=== PATIENT | male | born 1945 | race American Indian/Alaskan Native ===

== ENCOUNTER 2019-11-23 12:33 | Inpatient (IN) | payer MEDICARE, OTHER ==
--- NOTE | 2019-11-23 12:50 | Event Note ---
ED Screening Note Date of service: 11/23/19 Time: 12:48 ED Screening Note: Pt complains of right chest discomfort, fever, and urinary urgency x yesterday +dysuria denies cough or SOB This initial assessment/diagnostic orders/clinical plan/treatment(s) is/are subject to change based on patients health status, clinical progression and re- assessment by fellow clinical providers in the ED. Further treatment and workup at subsequent clinical providers discretion. Patient/guardian urged not to elope from the ED as their condition may be serious if not clinically assessed and managed. Initial orders include: CXR labs EKG
--- NOTE | 2019-11-23 13:34 | XRay Report ---
CHEST 2 VIEWS INDICATION: MAIN: chest pain PT SD COUGH AND CHILLS. ALONGSIDE PAIN UPON URINATION ...JTS. COMPARISON: 02/17/2009. FINDINGS: Support devices: None. Heart: Within normal limits. Lungs/Pleura: No acute air space or interstitial disease. No significant pleural effusion. IMPRESSION: No acute findings. Signer Name: Mendoza Aparicio MD Signed: 11/23/2019 1:30 PM Workstation Name: [id number]
[2019-11-23 14:43] LABS: Basophils % (Auto) 0.2 % (0.0-1.8); Eosinophils % (Auto) 0.3 % (0.0-4.3); Hematocrit 47.6 % (35.5-45.6); Hemoglobin 15.8 gm/dl (11.8-15.2); Lymphocytes # (Auto) 1.9 K/mm3 (1.2-5.4); Lymphocytes % (Auto) 13.5 % (13.4-35.0); Mean Corpuscular HGB Conc 33 % (32-34); Mean Corpuscular Volume 95 fl (84-94); Monocytes # (Auto) 0.9 K/mm3 (0.0-0.8); Monocytes % (Auto) 6.1 % (0.0-7.3); Platelet Count 202 K/mm3 (140-440); Red Blood Count 5.02 M/mm3 (3.65-5.03); Red Cell Distribution Width 14.2 % (13.2-15.2)
[2019-11-23 14:59] LABS: Alanine Aminotransferase 9 units/L (7-56); Albumin 3.9 g/dL (3.9-5); BUN/Creatinine Ratio 9; Blood Urea Nitrogen 8 mg/dL (9-20); Calcium 9.8 mg/dL (8.4-10.2); Hemolysis Index 22
[2019-11-23 17:13] LABS: Bilirubin,Urine NEG (Negative); Blood,Urine LG (Negative); Color,Urine Yellow (Yellow); Mucus,Urine FEW /HPF; Urobilinogen,Urine < 2.0 mg/dL (<2.0)
[2019-11-23 17:14] LABS: RBC,Urine > 182.0 /HPF (0.0-6.0); WBC,Urine > 182.0 /HPF (0.0-6.0)
[2019-11-23] MEDS ORDERED: HYDROcodone/ACETAMINOPHEN 10-325MG TAB PO ONE (18:16)
[2019-11-23] MEDS ORDERED: ONDANSETRON 4 MG ODT TAB PO ONE (18:17)
[2019-11-23] MEDS ORDERED: HYDROcodone/ACETAMINOPHEN 10-325MG TAB ONE (18:20)
[2019-11-23] MEDS ORDERED: CEFEPIME/NS 2 GM/100 ML 2 GM/100 ML BAG IV SCH (18:36)
[2019-11-23] MEDS ORDERED: SODIUM CHLORIDE 0.9% 1000 ML IV SOLN IV ONE (18:36)
[2019-11-23] MEDS ORDERED: ONDANSETRON 4 MG/2 ML INJ IV ONE (18:39)
[2019-11-23] MEDS ORDERED: ACETAMINOPHEN 325 MG TAB PO ONE (18:39)
--- NOTE | 2019-11-23 19:41 | Emergency Department Report ---
ED General Adult HPI - General Chief complaint: Fever Stated complaint: FEVER Time Seen by Provider: 11/23/19 12:47 Source: patient Mode of arrival: Ambulatory Limitations: No Limitations - History of Present Illness Initial comments: Patient is a 74-year-old male with past history of hypertension and probable BPH who is presenting with fever for the last 2 days. Patient lives in [place] but him and his had driven to [place] for the holidays. There are no way back to [place] that the patient was feeling ill and didn't feel as though he continued on the Hans. Patient's has mild nausea suprapubic pain and dysuria and malaise. Patient denies cough congestion. Patient has had subjective fevers and chills. Severity scale (0 -10): 0 - Related Data Allergies Allergy/AdvReac Type Severity Reaction Status Date / Time No Known Allergies Allergy Unverified 11/23/19 12:41 ED Review of Systems ROS: Stated complaint: FEVER Other details as noted in HPI Comment: All other systems reviewed and negative ED Past Medical Hx - Past Medical History Previous Medical History?: Yes Hx Hypertension: Yes Additional medical history: Right inquinal hernia, Dysuria with frequent urination - Surgical History Past Surgical History?: Yes Additional Surgical History: Right inquinal hernia repair - Social History Smoking Status: Current Every Day Smoker Substance Use Type: Alcohol ED Physical Exam - General Limitations: No Limitations General appearance: alert, in no apparent distress - Head Head exam: Present: atraumatic, normocephalic - Eye Eye exam: Present: normal appearance. Absent: PERRL, EOMI - ENT ENT exam: Present: normal orophraynx, mucous membranes moist - Neck Neck exam: Present: normal inspection - Respiratory Respiratory exam: Present: normal lung sounds bilaterally. Absent: respiratory distress, wheezes, rales, rhonchi, stridor - Cardiovascular Cardiovascular Exam: Present: normal rhythm, tachycardia. Absent: systolic murmur, diastolic murmur, rubs, gallop - GI/Abdominal GI/Abdominal exam: Present: soft, tenderness (suprapubic), normal bowel sounds. Absent: distended, guarding, rebound - Rectal Rectal exam: Present: deferred - Extremities Exam Extremities exam: Present: normal inspection - Back Exam Back exam: Present: normal inspection - Neurological Exam Neurological exam: Present: alert, oriented X3 - Psychiatric Psychiatric exam: Present: normal affect, normal mood - Skin Skin exam: Present: warm, dry, intact, normal color. Absent: rash ED Course Vital Signs 11/23/19 11/23/19 11/23/19 12:44 18:02 18:26 Temperature 98.8 F 100.5 F H Pulse Rate 110 H 94 H Respiratory 20 20 20 Rate Blood Pressure 186/89 Blood Pressure 156/80 [Right] O2 Sat by Pulse 96 94 Oximetry 11/23/19 19:12 Temperature Pulse Rate Respiratory 16 Rate Blood Pressure Blood Pressure [Right] O2 Sat by Pulse Oximetry ED Medical Decision Making - Lab Data Result diagrams: 11/23/19 14:22 11/23/19 14:22 Lab Results 11/23/19 11/23/19 11/23/19 Range/Units 14:22 14:22 16:22 WBC 14.0 H (4.5-11.0) K/mm3 RBC 5.02 (3.65-5.03) M/mm3 Hgb 15.8 H (11.8-15.2) gm/dl Hct 47.6 H (35.5-45.6) % MCV 95 H (84-94) fl MCH 31 (28-32) pg MCHC 33 (32-34) % RDW 14.2 (13.2-15.2) % Plt Count 202 (140-440) K/mm3 Lymph % (Auto) 13.5 (13.4-35.0) % [place] % (Auto) 6.1 (0.0-7.3) % Eos % (Auto) 0.3 (0.0-4.3) % Baso % (Auto) 0.2 (0.0-1.8) % Lymph # 1.9 (1.2-5.4) K/mm3 [place] # 0.9 H (0.0-0.8) K/mm3 Eos # 0.0 (0.0-0.4) K/mm3 Baso # 0.0 (0.0-0.1) K/mm3 Seg Neutrophils % 79.9 H (40.0-70.0) % Seg Neutrophils # 11.2 H (1.8-7.7) K/mm3 Sodium 131 L (137-145) mmol/L Potassium 4.0 (3.6-5.0) mmol/L Chloride 97.9 L (98-107) mmol/L Carbon Dioxide 22 (22-30) mmol/L Anion Gap 15 mmol/L BUN 8 L (9-20) mg/dL Creatinine 0.9 (0.8-1.5) mg/dL Estimated GFR > 60 ml/min BUN/Creatinine Ratio 9 % Glucose 114 H (75-100) mg/dL Lactic Acid (0.7-2.0) mmol/L Calcium 9.8 (8.4-10.2) mg/dL Total Bilirubin 0.60 (0.1-1.2) mg/dL AST 15 (5-40) units/L ALT 9 (7-56) units/L Alkaline Phosphatase 71 (35-129) units/L Troponin T < 0.010 < 0.010 (0.00-0.029) ng/mL Total Protein 7.1 (6.3-8.2) g/dL Albumin 3.9 (3.9-5) g/dL Albumin/Globulin Ratio 1.2 % Urine Color (Yellow) Urine Turbidity (Clear) Urine pH (5.0-7.0) Ur Specific [place] (1.003-1.030) Urine Protein (Negative) mg/dL Urine Glucose (UA) (Negative) mg/dL Urine Ketones (Negative) mg/dL Urine Blood (Negative) Urine Nitrite (Negative) Urine Bilirubin (Negative) Urine Urobilinogen (<2.0) mg/dL Ur Leukocyte Esterase (Negative) Urine WBC (Auto) (0.0-6.0) /HPF Urine RBC (Auto) (0.0-6.0) /HPF Urine WBC Clumps /HPF Urine Mucus /HPF 11/23/19 11/23/19 Range/Units 18:21 Unknown WBC (4.5-11.0) K/mm3 RBC (3.65-5.03) M/mm3 Hgb (11.8-15.2) gm/dl Hct (35.5-45.6) % MCV (84-94) fl MCH (28-32) pg MCHC (32-34) % RDW (13.2-15.2) % Plt Count (140-440) K/mm3 Lymph % (Auto) (13.4-35.0) % [place] % (Auto) (0.0-7.3) % Eos % (Auto) (0.0-4.3) % Baso % (Auto) (0.0-1.8) % Lymph # (1.2-5.4) K/mm3 [place] # (0.0-0.8) K/mm3 Eos # (0.0-0.4) K/mm3 Baso # (0.0-0.1) K/mm3 Seg Neutrophils % (40.0-70.0) % Seg Neutrophils # (1.8-7.7) K/mm3 Sodium (137-145) mmol/L Potassium (3.6-5.0) mmol/L Chloride (98-107) mmol/L Carbon Dioxide (22-30) mmol/L Anion Gap mmol/L BUN (9-20) mg/dL Creatinine (0.8-1.5) mg/dL Estimated GFR ml/min BUN/Creatinine Ratio % Glucose (75-100) mg/dL Lactic Acid 1.60 (0.7-2.0) mmol/L Calcium (8.4-10.2) mg/dL Total Bilirubin (0.1-1.2) mg/dL AST (5-40) units/L ALT (7-56) units/L Alkaline Phosphatase (35-129) units/L Troponin T (0.00-0.029) ng/mL Total Protein (6.3-8.2) g/dL Albumin (3.9-5) g/dL Albumin/Globulin Ratio % Urine Color Yellow (Yellow) Urine Turbidity Cloudy (Clear) Urine pH 5.0 (5.0-7.0) Ur Specific [place] 1.019 (1.003-1.030) Urine Protein 30 mg/dl (Negative) mg/dL Urine Glucose (UA) Neg (Negative) mg/dL Urine Ketones Neg (Negative) mg/dL Urine Blood Lg (Negative) Urine Nitrite Pos (Negative) Urine Bilirubin Neg (Negative) Urine Urobilinogen < 2.0 (<2.0) mg/dL Ur Leukocyte Esterase Lg (Negative) Urine WBC (Auto) > 182.0 H (0.0-6.0) /HPF Urine RBC (Auto) > 182.0 (0.0-6.0) /HPF Urine WBC Clumps 1+ /HPF Urine Mucus Few /HPF - Medical Decision Making Patient is a 74-year-old male who is presenting with suprapubic discomfort fever and dysuria. Patient has a compensated urinary tract infection. White count is elevated. Patient will be started on cefepime admitted to the hospital observation status. Lactic acid is been ordered. Fluids been initiated the patient's mild tachycardia and hyponatremia. Critical Care Time: Yes (30) Critical care attestation.: If time is entered above; I have spent that time in minutes in the direct care of this critically ill patient, excluding procedure time. ED Disposition Clinical Impression: Complicated UTI (urinary tract infection), Sepsis, Hyponatremia, Mild dehydration Disposition: DC-09 OP ADMIT IP TO THIS HOSP Is pt being admited?: Yes Does the pt Need Aspirin: No Condition: Stable Time of Disposition: 19:41
[2019-11-23] MEDS ORDERED: ONDANSETRON 4 MG/2 ML INJ IV PRN (22:33)
--- NOTE | 2019-11-23 22:38 | History and Physical Report ---
History of Present Illness Date of admission: 11/23/19 19:42 Chief complaint: Dysuria and pelvic pain History of present illness: 74-year-old man with a history of BPH. He presents to the hospital complaining of dysuria, poor stream of urination. Fever, feeling ill. He also noted that he had a small amounts of blood at the end of urination. Him and his were driving back from [place] to [place] on a road trip when he became very ill and he had to stop in the hospital. The pain in his lower abdomen/pelvis became so severe that he thought perhaps that hernia was bursting his stomach as he had hernias in the past. The pain has now resolved. Past medical history; BPH, off medications that he is waiting for a reevaluation at the [facility]. Hypertension, prediabetes Past surgical history, hernia repair x2 Social history, smoker, last cigarette was 2 days ago, denies alcohol or illicit drug use. He is retired and lives with his he is a . Family history denies any family history of prostate cancer or prostate issues and other family members. Medications and Allergies Allergies Allergy/AdvReac Type Severity Reaction Status Date / Time No Known Allergies Allergy Unverified 11/23/19 12:41 Home Medications Medication Instructions Recorded Confirmed Last Taken Type amLODIPine [Norvasc] 10 mg PO DAILY 11/23/19 11/23/19 Unknown History Active Meds: Active Medications Acetaminophen (Tylenol) 650 mg PO Q4H PRN PRN Reason: Pain MILD(1-3)/Fever >100.5/MEJIA Amlodipine Besylate (Amlodipine) 10 mg PO DAILY [facility] Enoxaparin Sodium (Enoxaparin) 40 mg SUB-Q QDAY@2200 [facility] Cefepime HCl (Cefepime/Ns 2 Gm/100 Ml) 2 gm in 100 mls @ 200 mls/hr IV Q12HR DONN; Protocol Last Admin: 11/23/19 19:12 Dose: 200 mls/hr Documented by: Ceftriaxone Sodium (Rocephin/Ns 1 Gm/50 Ml) 1 gm in 50 mls @ 100 mls/hr IV Q24HR DONN; Protocol Sodium Chloride (Nacl 0.9% 1000 Ml) 1,000 mls @ 100 mls/hr IV DIRECT DONN Ondansetron HCl (Zofran) 4 mg IV Q8H PRN PRN Reason: Nausea And Vomiting Sodium Chloride (Sodium Chloride Flush Syringe 10 Ml) 10 ml IV BID DONN Sodium Chloride (Sodium Chloride Flush Syringe 10 Ml) 10 ml IV PRN PRN PRN Reason: LINE FLUSH Tamsulosin HCl (Flomax) 0.4 mg PO QDAY DONN Review of Systems All systems: negative (See HPI) Exam - Constitutional Vitals: Temp Pulse Resp BP Pulse Ox 99.8 F H 85 16 117/65 93 11/23/19 19:10 11/23/19 19:10 11/23/19 19:26 11/23/19 19:10 11/23/19 19:10 General appearance: Present: no acute distress, well-nourished - EENT Eyes: Present: PERRL ENT: hearing intact, clear oral mucosa - Neck Neck: Present: supple, normal ROM - Respiratory Respiratory effort: normal Respiratory: bilateral: CTA - Cardiovascular Heart Sounds: Present: S1 & S2. Absent: rub, click - Extremities Extremities: pulses symmetrical, No edema Peripheral Pulses: within normal limits - Abdominal General gastrointestinal: Present: soft, non-tender, non-distended, normal bowel sounds Male genitourinary: Present: normal - Integumentary Integumentary: Present: clear, warm, dry - Musculoskeletal Musculoskeletal: gait normal, strength equal bilaterally - Psychiatric Psychiatric: appropriate mood/affect, intact judgment & insight - Neurologic Neurologic: CNII-XII intact, moves all extremities Results - Labs CBC & Chem 7: 11/23/19 14:22 11/23/19 14:22 Labs: Laboratory Last Values WBC 14.0 K/mm3 (4.5-11.0) H 11/23/19 14:22 RBC 5.02 M/mm3 (3.65-5.03) 11/23/19 14:22 Hgb 15.8 gm/dl (11.8-15.2) H 11/23/19 14:22 Hct 47.6 % (35.5-45.6) H 11/23/19 14:22 MCV 95 fl (84-94) H 11/23/19 14:22 MCH 31 pg (28-32) 11/23/19 14:22 MCHC 33 % (32-34) 11/23/19 14:22 RDW 14.2 % (13.2-15.2) 11/23/19 14:22 Plt Count 202 K/mm3 (140-440) 11/23/19 14:22 Lymph % (Auto) 13.5 % (13.4-35.0) 11/23/19 14:22 [place] % (Auto) 6.1 % (0.0-7.3) 11/23/19 14:22 Eos % (Auto) 0.3 % (0.0-4.3) 11/23/19 14:22 Baso % (Auto) 0.2 % (0.0-1.8) 11/23/19 14:22 Lymph # 1.9 K/mm3 (1.2-5.4) 11/23/19 14:22 [place] # 0.9 K/mm3 (0.0-0.8) H 11/23/19 14:22 Eos # 0.0 K/mm3 (0.0-0.4) 11/23/19 14:22 Baso # 0.0 K/mm3 (0.0-0.1) 11/23/19 14:22 Seg Neutrophils % 79.9 % (40.0-70.0) H 11/23/19 14:22 Seg Neutrophils # 11.2 K/mm3 (1.8-7.7) H 11/23/19 14:22 Sodium 131 mmol/L (137-145) L 11/23/19 14:22 Potassium 4.0 mmol/L (3.6-5.0) 11/23/19 14:22 Chloride 97.9 mmol/L (98-107) L 11/23/19 14:22 Carbon Dioxide 22 mmol/L (22-30) 11/23/19 14:22 Anion Gap 15 mmol/L 11/23/19 14:22 BUN 8 mg/dL (9-20) L 11/23/19 14:22 Creatinine 0.9 mg/dL (0.8-1.5) 11/23/19 14:22 Estimated GFR > 60 ml/min 11/23/19 14:22 BUN/Creatinine Ratio 9 % 11/23/19 14:22 Glucose 114 mg/dL (75-100) H 11/23/19 14:22 Lactic Acid 1.60 mmol/L (0.7-2.0) 11/23/19 18:21 Calcium 9.8 mg/dL (8.4-10.2) 11/23/19 14:22 Total Bilirubin 0.60 mg/dL (0.1-1.2) 11/23/19 14:22 AST 15 units/L (5-40) 11/23/19 14:22 ALT 9 units/L (7-56) 11/23/19 14:22 Alkaline Phosphatase 71 units/L (35-129) 11/23/19 14:22 Troponin T < 0.010 ng/mL (0.00-0.029) 11/23/19 16:22 Total Protein 7.1 g/dL (6.3-8.2) 11/23/19 14:22 Albumin 3.9 g/dL (3.9-5) 11/23/19 14:22 Albumin/Globulin Ratio 1.2 % 11/23/19 14:22 Urine Color Yellow (Yellow) 11/23/19 Unknown Urine Turbidity Cloudy (Clear) 11/23/19 Unknown Urine pH 5.0 (5.0-7.0) 11/23/19 Unknown Ur Specific [place] 1.019 (1.003-1.030) 11/23/19 Unknown Urine Protein 30 mg/dl mg/dL (Negative) 11/23/19 Unknown Urine Glucose (UA) Neg mg/dL (Negative) 11/23/19 Unknown Urine Ketones Neg mg/dL (Negative) 11/23/19 Unknown Urine Blood Lg (Negative) 11/23/19 Unknown Urine Nitrite Pos (Negative) 11/23/19 Unknown Urine Bilirubin Neg (Negative) 11/23/19 Unknown Urine Urobilinogen < 2.0 mg/dL (<2.0) 11/23/19 Unknown Ur Leukocyte Esterase Lg (Negative) 11/23/19 Unknown Urine WBC (Auto) > 182.0 /HPF (0.0-6.0) H 11/23/19 Unknown Urine RBC (Auto) > 182.0 /HPF (0.0-6.0) 11/23/19 Unknown Urine WBC Clumps 1+ /HPF 11/23/19 Unknown Urine Mucus Few /HPF 11/23/19 Unknown - Imaging and Cardiology Chest x-ray: image reviewed (No acute findings) Assessment and Plan Assessment and plan: 74-year-old man who presents with sepsis UTI and poor urinary stream. UTI/sepsis Was most likely caused by obstructive uropathy from his prostate issues Obtain urine cultures, antibiotics, IV fluids BPH with poor urinary stream Started on Flomax, he will need a prescription at the time of discharge Tobacco abuse/dependence Smoking cessation counseling performed for 10 minutes, nicotine patches when necessary Hyponatremia, IV fluids DVT prophylaxis with Lovenox Preventative health counseling performed for 17 minutes
[2019-11-23] MEDS: SODIUM CHLORIDE 0.9% 1000 ML 1,000 ML IV SCH (23:34)
[2019-11-24] MEDS: ACETAMINOPHEN 325 MG TAB PO PRN ×2 (01:35→23:42)
[2019-11-24 04:56] LABS: Basophils % (Auto) 0.3 % (0.0-1.8); Eosinophils % (Auto) 0.2 % (0.0-4.3); Hematocrit 45.7 % (35.5-45.6); Lymphocytes # (Auto) 2.5 K/mm3 (1.2-5.4); Mean Corpuscular HGB Conc 33 % (32-34); Mean Corpuscular Volume 96 fl (84-94); Monocytes # (Auto) 0.9 K/mm3 (0.0-0.8); Monocytes % (Auto) 6.8 % (0.0-7.3); Platelet Count 180 K/mm3 (140-440); Red Blood Count 4.78 M/mm3 (3.65-5.03); Red Cell Distribution Width 14.1 % (13.2-15.2)
[2019-11-24 05:15] LABS: BUN/Creatinine Ratio 10; Blood Urea Nitrogen 9 mg/dL (9-20); Calcium 8.8 mg/dL (8.4-10.2); Hemolysis Index 8
--- NOTE | 2019-11-24 07:57 | Progress Note ---
Assessment and Plan Assessment and plan: 74-year-old man with a history of BPH, Hernia Repair He presents to the hospital complaining of dysuria, poor stream of urination. Fever, feeling ill. He also noted that he had a small amounts of blood at the end of urination. Him and his were [place] trip when he became very ill and he had to stop in the hospital. The pain in his lower abdomen/pelvis became so severe that he thought perhaps that hernia was bursting his stomach as he had hernias in the past. The pain has now resolved. UTI/sepsis possible Underlying Prostatitis Was most likely caused by obstructive uropathy from his prostate issues Obtain urine cultures, antibiotics, IV fluids Will check Renal ultrasound. BPH with poor urinary stream Started on Flomax, he will need a prescription at the time of discharge Following up at the [facility] Tobacco abuse/dependence Smoking cessation counseling performed for 15 minutes reinforcement, nicotine patches when necessary Hyponatremia, IV fluids Hypoglycemia- Monitor closely, DVT prophylaxis with Lovenox Preventative health counseling performed for 17 minutes Will change patient to inpatient due to continued persistent Fever. History Interval history: Patient seen and examined today resting comfortably reports to me that he has been treated in the past for prostatitis. He has been having dribbling of urine. With overflow incontinence occasionally. Hospitalist Physical - Physical exam Narrative exam: VITAL SIGNS: Reviewed. GENERAL: The patient appears normally developed, family at bedside. Vital signs as documented. HEAD: No signs of head trauma. EYES: Pupils are equal. Extraocular motions intact. EARS: Hearing grossly intact. MOUTH: Oropharynx is normal. NECK: No adenopathy, no JVD. CHEST: Chest with clear breath sounds bilaterally. No wheezes, rales, or rhonchi. CARDIAC: Regular rate and rhythm. S1 and S2, without murmurs, gallops, or rubs. VASCULAR: No Edema. Peripheral pulses normal and equal in all extremities. ABDOMEN: Soft, non tender and non distended. No rebound or guarding, and no masses palpated. Bowel Sounds normal. MUSCULOSKELETAL: Good range of motion of all major joints. Extremities without clubbing, cyanosis or edema. NEUROLOGIC EXAM: Alert and oriented x 3 No focal sensory or strength deficits. Speech normal. Follows commands. PSYCHIATRIC: Mood normal. SKIN: detial exam as documented in skin assessment - Constitutional Vitals: Temp Pulse Resp BP Pulse Ox 99.9 F H 88 20 108/48 90 11/24/19 04:22 11/24/19 01:46 11/24/19 01:46 11/24/19 01:46 11/24/19 01:46 General appearance: Present: no acute distress, well-nourished Results - Labs CBC & Chem 7: 11/24/19 04:03 11/24/19 04:03 Labs: Laboratory Last Values WBC 13.9 K/mm3 (4.5-11.0) H 11/24/19 04:03 RBC 4.78 M/mm3 (3.65-5.03) 11/24/19 04:03 Hgb 15.0 gm/dl (11.8-15.2) 11/24/19 04:03 Hct 45.7 % (35.5-45.6) H 11/24/19 04:03 MCV 96 fl (84-94) H 11/24/19 04:03 MCH 32 pg (28-32) 11/24/19 04:03 MCHC 33 % (32-34) 11/24/19 04:03 RDW 14.1 % (13.2-15.2) 11/24/19 04:03 Plt Count 180 K/mm3 (140-440) 11/24/19 04:03 Lymph % (Auto) 18.0 % (13.4-35.0) 11/24/19 04:03 [place] % (Auto) 6.8 % (0.0-7.3) 11/24/19 04:03 Eos % (Auto) 0.2 % (0.0-4.3) 11/24/19 04:03 Baso % (Auto) 0.3 % (0.0-1.8) 11/24/19 04:03 Lymph # 2.5 K/mm3 (1.2-5.4) 11/24/19 04:03 [place] # 0.9 K/mm3 (0.0-0.8) H 11/24/19 04:03 Eos # 0.0 K/mm3 (0.0-0.4) 11/24/19 04:03 Baso # 0.0 K/mm3 (0.0-0.1) 11/24/19 04:03 Seg Neutrophils % 74.7 % (40.0-70.0) H 11/24/19 04:03 Seg Neutrophils # 10.4 K/mm3 (1.8-7.7) H 11/24/19 04:03 Sodium 134 mmol/L (137-145) L 11/24/19 04:03 Potassium 3.9 mmol/L (3.6-5.0) 11/24/19 04:03 Chloride 98.4 mmol/L (98-107) 11/24/19 04:03 Carbon Dioxide 20 mmol/L (22-30) L 11/24/19 04:03 Anion Gap 20 mmol/L 11/24/19 04:03 BUN 9 mg/dL (9-20) 11/24/19 04:03 Creatinine 0.9 mg/dL (0.8-1.5) 11/24/19 04:03 Estimated GFR > 60 ml/min 11/24/19 04:03 BUN/Creatinine Ratio 10 % 11/24/19 04:03 Glucose 63 mg/dL (75-100) L 11/24/19 04:03 Lactic Acid 1.20 mmol/L (0.7-2.0) 11/23/19 23:42 Calcium 8.8 mg/dL (8.4-10.2) 11/24/19 04:03 Total Bilirubin 0.60 mg/dL (0.1-1.2) 11/23/19 14:22 AST 15 units/L (5-40) 11/23/19 14:22 ALT 9 units/L (7-56) 11/23/19 14:22 Alkaline Phosphatase 71 units/L (35-129) 11/23/19 14:22 Troponin T < 0.010 ng/mL (0.00-0.029) 11/23/19 16:22 Total Protein 7.1 g/dL (6.3-8.2) 11/23/19 14:22 Albumin 3.9 g/dL (3.9-5) 11/23/19 14:22 Albumin/Globulin Ratio 1.2 % 11/23/19 14:22 Urine Color Yellow (Yellow) 11/23/19 Unknown Urine Turbidity Cloudy (Clear) 11/23/19 Unknown Urine pH 5.0 (5.0-7.0) 11/23/19 Unknown Ur Specific [place] 1.019 (1.003-1.030) 11/23/19 Unknown Urine Protein 30 mg/dl mg/dL (Negative) 11/23/19 Unknown Urine Glucose (UA) Neg mg/dL (Negative) 11/23/19 Unknown Urine Ketones Neg mg/dL (Negative) 11/23/19 Unknown Urine Blood Lg (Negative) 11/23/19 Unknown Urine Nitrite Pos (Negative) 11/23/19 Unknown Urine Bilirubin Neg (Negative) 11/23/19 Unknown Urine Urobilinogen < 2.0 mg/dL (<2.0) 11/23/19 Unknown Ur Leukocyte Esterase Lg (Negative) 11/23/19 Unknown Urine WBC (Auto) > 182.0 /HPF (0.0-6.0) H 11/23/19 Unknown Urine RBC (Auto) > 182.0 /HPF (0.0-6.0) 11/23/19 Unknown Urine WBC Clumps 1+ /HPF 11/23/19 Unknown Urine Mucus Few /HPF 11/23/19 Unknown Active Medications - Current Medications Current Medications: Generic Name Dose Route Start Last Admin Trade Name Freq PRN Reason Stop Dose Admin Acetaminophen 650 mg 11/23/19 22:33 11/24/19 01:35 Tylenol PO 650 mg Q4H PRN Administration Pain MILD(1-3)/Fever >100.5/MEJIA Amlodipine Besylate 10 mg 11/24/19 10:00 Amlodipine PO DAILY [facility] Enoxaparin Sodium 40 mg 11/24/19 22:00 Enoxaparin SUB-Q QDAY@2200 [facility] Ceftriaxone Sodium 1 gm in 50 mls @ 100 mls/hr 11/24/19 10:00 Rocephin/Ns 1 Gm/50 Ml IV Q24HR [facility] Protocol Sodium Chloride 1,000 mls @ 100 mls/hr 11/23/19 22:45 11/23/19 23:34 Nacl 0.9% 1000 Ml IV 100 mls/hr DIRECT DONN Administration Ondansetron HCl 4 mg 11/23/19 22:33 Zofran IV Q8H PRN Nausea And Vomiting Sodium Chloride 10 ml 11/24/19 10:00 Sodium Chloride Flush Syringe 10 Ml IV BID DONN Sodium Chloride 10 ml 11/23/19 22:33 Sodium Chloride Flush Syringe 10 Ml IV PRN PRN LINE FLUSH Tamsulosin HCl 0.4 mg 11/24/19 10:00 Flomax PO QDAY DONN
[2019-11-24] MEDS ORDERED: DEXTROSE 50% IN WATER (25GM) 50 ML SYRINGE IV PRN (08:05)
[2019-11-24 08:08] LABS: Bacteria,Urine 2+ /HPF (Negative); Bilirubin,Urine NEG (Negative); Blood,Urine MOD (Negative); Color,Urine Yellow (Yellow); Mucus,Urine FEW /HPF; Protein,Urine <15 mg/dL mg/dL (Negative); Urobilinogen,Urine < 2.0 mg/dL (<2.0)
[2019-11-24] MEDS: SODIUM CHLORIDE 0.9% 1000 ML 1,000 ML IV SCH (11:52)
[2019-11-24] MEDS: cefTRIAXone/NS 1 GM/50 ML 1 GM/50 ML BAG IV SCH (11:52)
[2019-11-24] MEDS: TAMSULOSIN 0.4 MG CAP PO SCH (11:53)
[2019-11-24] MEDS: amLODIPine 10 MG TAB PO SCH (11:55)
--- NOTE | 2019-11-24 15:58 | Ultrasound Report ---
ULTRASOUND RENAL INDICATION / CLINICAL INFORMATION: CYSTITIS. COMPARISON: None available. FINDINGS: RIGHT KIDNEY: Length = 11.3 cm. [normal > 9 cm] - Parenchymal Thickness = 0.8 cm. [normal > 1.5 cm] - Echogenicity: Increased - Hydronephrosis: None. - Cyst or mass: No significant abnormality. - Stones: None seen. LEFT KIDNEY: Length = 12.8 cm. [normal > 9 cm] - Parenchymal Thickness = 1.8 cm. [normal > 1.5 cm] - Echogenicity: Increased - Hydronephrosis: None. - Cyst or mass: No significant abnormality. - Stones: None seen. URINARY BLADDER: The bladder is poorly distended but diffuse bladder wall thickening is suspected cody suring up to 1 cm. FREE FLUID: None. ADDITIONAL FINDINGS: None. IMPRESSION: Nonspecific renal disease. Findings consistent with cystitis. Signer Name: Sarmad Ramirez Jr, MD Signed: 11/24/2019 3:53 PM Workstation Name: [id number]
[2019-11-24] MEDS ORDERED: ENOXAPARIN 40 MG/0.4 ML INJ SUB-Q SCH (22:00)
[2019-11-25 06:15] LABS: Hematocrit 41.7 % (35.5-45.6); Hemoglobin 13.9 gm/dl (11.8-15.2); Mean Corpuscular HGB Conc 33 % (32-34); Mean Corpuscular Volume 95 fl (84-94); Platelet Count 156 K/mm3 (140-440); Red Blood Count 4.41 M/mm3 (3.65-5.03); Red Cell Distribution Width 13.8 % (13.2-15.2)
[2019-11-25 06:39] LABS: BUN/Creatinine Ratio 8; Blood Urea Nitrogen 8 mg/dL (9-20); Calcium 8.5 mg/dL (8.4-10.2); Hemolysis Index 11
--- NOTE | 2019-11-25 07:48 | Discharge Summary ---
Providers - Providers Date of Admission: 11/24/19 07:57 Attending physician: PONCHO SARABIA MD 11/24/19 12:17 Physical Therapy Evaluation and Treat [CONS] Routine Comment: Reason For Exam: Weakness Primary care physician: [facility]ERSON[facility] [employer] APPRAISER Hospitalization Condition: Stable Hospital course: CYTITIS ON RENAL US Disposition: TO HOME OR SELFCARE Time spent for discharge: 35 MINS Exam - Constitutional Vitals: Temp Pulse Resp BP Pulse Ox 100.7 F H 87 17 108/47 92 11/24/19 20:08 11/24/19 20:08 11/24/19 20:08 11/24/19 20:08 11/24/19 20:08 Plan Activity: advance as tolerated, fall precautions Diet: low fat Special Instructions: record daily weights, record daily BP diary Additional Instructions: FOLLOW WITH UROLOGIST [facility] Follow up with: KENNEDI LEA MD [Primary Care Provider] - 7 Days Prescriptions: Tamsulosin [Flomax] 0.4 mg PO QDAY #30 capsule levoFLOXacin [Levaquin] 750 mg PO QDAY #7 tablet
[2019-11-25] MEDS: cefTRIAXone/NS 1 GM/50 ML 1 GM/50 ML BAG IV SCH (10:28)
[2019-11-25] MEDS: TAMSULOSIN 0.4 MG CAP PO SCH (10:29)
[2019-11-25] MEDS: amLODIPine 10 MG TAB PO SCH (10:30)
[2019-11-25 14:02] VITALS: BP 164/74
== END 2019-11-25 14:00 | disposition home or self-care (01) | DRG 872 ==
LOC: ED 12:33 → 2B-ACE 19:42 → OBSVTOIN 11-24 07:57
PROVIDERS: ADMIT Internal Medicine; ATTEND Internal Medicine
DX: A41.9 Sepsis, unspecified organism (principal); N39.0 Urinary tract infection, site not specified; E87.1 Hypo-osmolality and hyponatremia; I10 Essential (primary) hypertension; F17.210 Nicotine dependence, cigarettes, uncomplicated; E86.0 Dehydration; E16.2 Hypoglycemia, unspecified; N40.1 Benign prostatic hyperplasia with lower urinary tract symptoms; R39.12 Poor urinary stream
CPT/HCPCS: 36415; 71046; 76770; 80048; 80053; 81001; 82140; 84484; 85025; 85027; 87040; 87086; 93005; 93010; 96374; 99406; G0378; J0692; J0696; J1650; J2405; J7030; Q0162